=== PATIENT | female | born 1940 | race Caucasian/White ===

== ENCOUNTER 2023-08-27 19:29 | Emergency (ER) | payer OTHER, SELFPAY ==
[2023-08-27 19:32] VITALS: BP 149/70; PULSE 85; RESP 16; TEMP 36.3; O2SAT 94; BMI 20.2
--- NOTE | 2023-08-27 20:04 | ED_ITS ---
HPI - General Adult General Date Seen: 08/27/23 Chief complaint: Flank Pain Stated complaint: L arm and flank pain Time Seen by Provider: 08/27/23 19:34 History of Present Illness HPI narrative: 82-year-old female with a past medical history of hypertension, hypothyroidism, high cholesterol, history of pericardial effusion, history of right pontine CVA, osteopenia, migraine headaches, anxiety, depression, presenting to the ER today from home for evaluation of left flank pain, intermittent nausea, left arm pain. History from the patient is that she has had some chronic pain in her left flank for years. She can not exactly recall but workup had been done (years ago) but it sounds like her doctor had done an x-ray risk and. No clear cause for the flank pain is known. It has been getting worse yesterday or perhaps for a few days. Along with that, since Friday, about 3 days ago she has been having some anterior abdominal pain, more on the right than on the left. Also, since this morning she has been having intermittent episodes of nausea. No other clear symptoms with those nausea spells. No chest pain. No palpitations. This afternoon she had an episode of intense pain involving her left upper arm between the elbow and the armpit. She does not know what brought it on. It was not triggered by any movement or injury. No associated neck pain or numbness or burning down the arm. No swelling in the arm. She does recall that she gets p ains in that arm from time to time but has not had any lately. They arm pain, combined with the other new worsening symptoms prompted her to call 911. Now that she is here in the ER her symptoms are better. No arm pain. No nausea. Not having any left flank pain currently. In review of her record through [employer] [facility] she had a CT scan of her abdomen 07/05/2022. It showed no pleural effusion. Small pericardial effusion similar to prior. She had a compression deformity of lumbar 2, unchanged. Severe degenerative changes of L5-S1. Degenerative joint disease of both hips. No bowel obstruction. No mention of her aorta on the report. Related Data Home Medications ?Medication ?Instructions ?Recorded ?Confirmed fluticasone fur. 100 mcg-umeclid 1 inh inhalation Q24H 08/07/23 08/07/23 62.5 mcg-vilant 25 mcg inhalat.powder (Trelegy Ellipta) levothyroxine 13 mcg capsule 13 mcg PO QDAY 08/07/23 08/07/23 omeprazole 20 mg capsule,delayed 20 mg PO QDAY 08/07/23 08/07/23 release ondansetron HCl 4 mg tablet 4 mg PO Q8H 08/07/23 08/07/23 rosuvastatin 5 mg tablet (Crestor) 5 mg PO QDAY 08/07/23 08/07/23 sertraline 50 mg tablet (Zoloft) 50 mg PO QDAY 08/07/23 08/07/23 sucralfate 1 gram tablet 1 g PO BID 08/07/23 08/07/23 Previous Rx's ?Medication ?Instructions ?Recorded cephalexin 500 mg capsule 500 mg PO TID #21 caps 08/07/23 Allergies Allergy/AdvReac Type Severity Reaction Status Date / Time sulfamethazine Allergy Severe Verified 08/27/23 21:12 doxycycline Allergy Intermediate Nausea Verified 08/27/23 21:12 famotidine [From Pepcid] Allergy Intermediate Nausea Verified 08/27/23 21:12 atorvastatin [From Lipitor] AdvReac Intermediate Abdominal Verified 08/27/23 21:12 Pain lactose AdvReac Intermediate Nausea Verified 08/27/23 21:12 Vitamin B Complex with B12 AdvReac Mild ACID REFLUX Uncoded 08/27/23 21:12 and C PFSH PFSH Social History Non-prescribed substance use: denies use Exam Narrative: Exam Narrative: Exam initially limited because she seen in the hallway. not able to disrobe were for complete exam. Constitutional: Appears well-developed and well-nourished. Alert. Conversant. Non toxic. Says she is feeling better. HENT: Head: Atraumatic. Nose: Nose normal. Mouth/Throat: Oral mucosa is clear and moist. no trismus. Pharynx normal. Tonsils symmetric. No tonsillar enlargement, erythema, or exudate. Eyes: Conjunctivae normal. EOM normal. Pupils equal, round, and reactive to light. No scleral icterus. Neck: Normal range of motion. Neck supple. No tracheal deviation present. No JVD Cardiovascular: Normal rate, regular rhythm. No gallop. No friction rub. No murmur heard. Symmetric radial artery pulses Pulmonary/Chest: Effort normal. No stridor. No respiratory distress. No wheezes. No rales. No rhonchi . No ribcage tenderness. Abdominal: Soft. Bowel sounds normal. No distension. No mass. No pulsatile mass. Mild left upper quadrant and left mid abdominal tenderness. No rebound. No guarding. Musculoskeletal: No apparent rash or bruising on her visualized back or flank. No midline thoracic or lumbar spine tenderness. Rib cage nontender. RUE: Normal range of motion. No tenderness. No deformity LUE: Normal range of motion. No tenderness. No deformity RLE: Normal range of motion. No edema. No tenderness. No deformity LLE: Normal range of motion. No edema. No tenderness. No deformity Neurological: Alert and oriented to person, place, and time. Normal strength. CN II-VII intact. No sensory deficit. GCS eye subscore is 4. GCS verbal subscore is 5. GCS motor subscore is 6. Normal coordination . Strength 5/5 bilaterally in the deltoid, biceps, triceps, machine staker. Skin: Skin is warm and dry. No rash noted. No pallor. Normal capillary refill. Psychiatric: Normal mood. Normal affect. Const: Vital Signs, click to edit/add: Vital Signs - 24 hr 08/27/23 19:32 08/27/23 22:20 08/27/23 23:12 Temperature 97.4 F L Pulse Rate 73 Pulse Rate [Right Pulse Oximeter] 85 Respiratory Rate 16 16 Blood Pressure 146/70 H 140/74 H Blood Pressure [Ri ght Upper Arm] 149/70 H Pulse Oximetry 94 Oxygen Delivery Me thod Room Air Course Vital Signs Vital signs: Initial Vital Signs Temperature 97.4 F L 08/27/23 19:32 Temperature Source Temporal Artery Scan 08/27/23 19:32 Pulse Rate 85 08/27/23 19:32 Pulse Rhythm Regular 08/27/23 19:32 Respiratory Rate 16 08/27/23 19:32 Blood Pressure 149/70 H 08/27/23 19:32 Blood Pressure Mean 96 08/27/23 19:32 Blood Pressure Position Semi-Fowlers 08/27/23 19:32 Pulse Oximetry 94 08/27/23 19:32 Oxygen Delivery Method Room Air 08/27/23 19:32 Vital Signs Temperature 97.4 F L 08/27/23 19:32 Pulse Rate 85 08/27/23 19:32 Respiratory Rate 16 08/27/23 19:32 Blood Pressure 149/70 H 08/27/23 19:32 Pulse Oximetry 94 08/27/23 19:32 Oxygen Delivery Method Room Air 08/27/23 19:32 Temperature 97.4 F L 08/27/23 19:32 Pulse Rate 73 08/27/23 22:20 Respiratory Rate 16 08/27/23 22:20 Blood Pressure 140/74 H 08/27/23 23:12 Pulse Oximetry 94 08/27/23 19:32 Oxygen Delivery Method Room Air 08/27/23 19:32 Medications Administered Medications: Generic Name Dose Route Start Last Admin Trade Name Mark PRN Reason Stop Dose Admin Aspirin 162 mg 08/27/23 22:59 08/27/23 23:48 Aspirin 81 Mg Tab.Chew PO 08/27/23 23:00 162 mg ONCE ONE Administration Ondansetron HCl 4 mg 08/27/23 22:59 08/27/23 23:51 Ondansetron 2 Mg/Ml Inj IVP 08/27/23 23:00 4 mg ONCE ONE Administration Medical Decision Making [facility] Narrative Medical decision making narrative: 82-year-old female brought to the ER today by EMS for evaluation of chronic left flank pain worse than normal, new abdominal pain, intermittent nausea and vomiting, with an episode of severe left upper arm pain (that happens intermittently but happened again today). Differential is broad. In terms of her left flank pain, consider possible left kidney abnormality, kidney stone, pyelonephritis as well as aortic abnormality, splenic abnormality, atypical presentation of pancreatitis, left pleural effusion, rib fractures, musculoskeletal pain, among others. No evidence for any a chest wall infection, bruising, shingles. With her left arm pain, although she is not having any chest pain, consider possible angina. She has had occasionally in the past. It happened again today. No clear exertional component. EKG shows no definite ischemia but does show nonspecific changes. Initial troponin is detectable at 0.07. 2 hour delta troponin is rising up to 0.12. After aortic dissection definitively rule out with CT, aspirin administered. She is not actively having any symptoms here in the ER to suggest ongoing angina. Therefore no nitro administered. Will also treat with heparin for possible non-STEMI. Discussed with cardiology from [facility], . We reviewed the patient's presenting symptoms (no chest pain but intermittent nausea, intermittent left arm pain) nonspecific EKG, abnormal in slightly rising troponins. He accepts the patient in transfer to [place]. He agrees with aspirin and heparin. Urinalysis negative for pyuria or hematuria. BMP shows mild hyponatremia with sodium 131, likely not low enough to contribute to symptoms. Mild hypokalemia with potassium of 3.4. No definite EKG changes from this. Lab Data Labs: Lab Results 08/27/23 08/27/23 08/27/23 Range/Units 20:40 20:55 22:55 WBC 8.13 (4.50-11.00) K/uL RBC 4.16 (4.00-5.20) m/uL Hgb 12.3 (12.0-16.0) gm/dL Hct 37.0 (33.0-51.0) % MCV 89 (80-100) fL MCH 30 (26-34) pg MCHC 33 (32-36) gm/dL RDW Coeff of [place] 13.3 (11.5-15.5) % Plt Count 218 (140-440) K/uL Neut % (Auto) 68.3 (42.0-72.0) % Lymph % (Auto) 21.4 (20-44) % [place] % (Auto) 8.6 (0.0-11.0) % Eos % (Auto) 0.7 (0.0-7.0) % Baso % (Auto) 0.1 (0.0-3.0) % Neut # (Auto) 5.55 (1.7-7.0) K/uL Lymph # (Auto) 1.74 (0.90-2.90) K/uL [place] # (Auto) 0.70 (0.00-0.90) K/UL Eos # (Auto) 0.06 (0.00-0.50) K/uL Baso # (Auto) 0.01 (0.00-0.30) K/uL Abs Immat Gran (auto) 0.07 (0.00-0.30) K/uL Imm/Tot Granulo (auto) 0.9 % Sodium 131 L (135-149) mmol/L Potassium 3.4 L (3.6-5.1) mmol/L Chloride 99 (96-114) mmol/L Carbon Dioxide 28 (20-32) mmol/L Anion Gap 4 L (7-15) mEq/L BUN 18 (7-30) mg/dL Creatinine 0.7 (0.5-1.5) mg/dL Estimated Creat Clear 38.15 Estimated GFR 86 ml/min Glucose 97 (60-115) mg/dL Lactate 0.8 (0.5-1.9) mmol/L Calcium 8.7 (8.4-10.6) mg/dL Total Bilirubin 0.6 (0.1-1.5) mg/dL AST 34 (12-35) U/L ALT 26 (4-35) U/L Alkaline Phosphatase 56 (40-150) U/L Total Protein 7.0 (6.0-8.3) g/dL Albumin 4.4 (3.3-5.0) g/dL Lipase 72 (23-300) U/L Urine Color (Yellow) Urine Appearance (Clear) Urine pH (5.0-8.5) Ur Specific [place] (1.000-1.030) Urine Protein (Negative) Urine Glucose (UA) (Negative) Urine Ketones (Negative) Urine Blood (Negative) Urine Nitrite (Negative) Urine Bilirubin (Negative) Urine Urobilinogen (0.2-1.0) Ur Leukocyte Esterase (Negative) Urine RBC (0-2) Urine WBC (0-5) Ur Squamous Epith Cells (None-Few) Urine Bacteria (None) POC Troponin I 0.07 H 0.12 H (0.01-0.04) ng/ml 08/27/23 Range/Units Unknown WBC (4.50-11.00) K/uL RBC (4.00-5.20) m/uL Hgb (12.0-16.0) gm/dL Hct (33.0-51.0) % MCV (80-100) fL MCH (26-34) pg MCHC (32-36) gm/dL RDW Coeff of [place] (11.5-15.5) % Plt Count (140-440) K/uL Neut % (Auto) (42.0-72.0) % Lymph % (Auto) (20-44) % [place] % (Auto) (0.0-11.0) % Eos % (Auto) (0.0-7.0) % Baso % (Auto) (0.0-3.0) % Neut # (Auto) (1.7-7.0) K/uL Lymph # (Auto) (0.90-2.90) K/uL [place] # (Auto) (0.00-0.90) K/UL Eos # (Auto) (0.00-0.50) K/uL Baso # (Auto) (0.00-0.30) K/uL Abs Immat Gran (auto) (0.00-0.30) K/uL Imm/Tot Granulo (auto) % Sodium (135-149) mmol/L Potassium (3.6-5.1) mmol/L Chloride (96-114) mmol/L Carbon Dioxide (20-32) mmol/L Anion Gap (7-15) mEq/L BUN (7-30) mg/dL Creatinine (0.5-1.5) mg/dL Estimated Creat Clear Estimated GFR ml/min Glucose (60-115) mg/dL Lactate (0.5-1.9) mmol/L Calcium (8.4-10.6) mg/dL Total Bilirubin (0.1-1.5) mg/dL AST (12-35) U/L ALT (4-35) U/L Alkaline Phosphatase (40-150) U/L Total Protein (6.0-8.3) g/dL Albumin (3.3-5.0) g/dL Lipase (23-300) U/L Urine Color Yellow (Yellow) Urine Appearance Clear (Clear) Urine pH 6.5 (5.0-8.5) Ur Specific [place] 1.020 (1.000-1.030) Urine Protein Negative (Negative) Urine Glucose (UA) Negative (Negative) Urine Ketones Negative (Negative) Urine Blood Negative (Negative) Urine Nitrite Negative (Negative) Urine Bilirubin Negative (Negative) Urine Urobilinogen 0.2 (0.2-1.0) Ur Leukocyte Esterase Negative (Negative) Urine RBC 0-2 (0-2) Urine WBC 0-2 (0-5) Ur Squamous Epith Cells None (None-Few) Urine Bacteria None (None) POC Troponin I (0.01-0.04) ng/ml Imaging Data CT Chest/Ab/Pelvis: Attestation: I have reviewed the pertinent imaging results. My impression: No abdominal aortic aneurysm. Awaiting formal radiology report Radiologist's impression: FINDINGS: CHEST: Cardiovascular structures: The unenhanced images demonstrate no evidence of aortic intramural thrombus. Thoracic aorta is normal in caliber without evidence of dissection. Heart size is normal. Coronary artery calcification. No pulmonary embolism. Mediastinum and kena: No mass or adenopathy. Lungs and pleura: Right lower lobe scarring versus atelectasis. No consolidation. Punctate subsolid nodule within the right upper lobe (7/23). No suspicious nodule. Thin bands of scarring within the lingula. No pleural effusion or pneumothorax. Chest wall and axilla: No mass or adenopathy. Bones: Unremarkable for age. ABDOMEN AND PELVIS: Liver: Unremarkable. Gallbladder and bile ducts: Status post cholecystectomy. No abnormal biliary ductal dilatation. Pancreas: Unremarkable. Spleen: Unremarkable. Adrenal glands: Unremarkable. Kidneys: Unremarkable. GI tract: Unremarkable. Vascular structures: Abdominal aorta is normal in caliber without evidence of dissection. Moderate atherosclerotic disease of the abdominal aorta. Mesenteric arteries are patent. Lymph nodes: Unremarkable. Miscellaneous: Unremarkable. No free air or significant free fluid. Pelvic Organs: Unremarkable. Bones: Chronic-appearing, mild L2 compression fracture. Otherwise, unremarkable for age IMPRESSION: 1. No aortic dissection or acute intramural hematoma. 2. No acute findings within the chest, abdomen, or pelvis ECG Data Attestation: I personally reviewed and interpreted this ECG as follows: Interpretation: Normal sinus rhythm with sinus arrhythmia Rate: 67 PA: 148. QRS axis: Normal axis. RSR prime pattern in V1 suggests possible right ventricular conduction delay but there is not clearly a terminal S-wave in V5 and V6 to suggest incomplete right bundle-branch block. QRS duration 96 ST segment/T wave: No ST segment elevation or depression. QTc: 422 Discharge Plan Discharge Clinical Impression: Non-ST elevation [place] (NSTEMI), Chronic left flank pain Patient Disposition: Xfer Other Prescriptions: No Action levothyroxine 13 mcg capsule 13 mcg PO QDAY omeprazole 20 mg capsule,delayed release(DR/EC) 20 mg PO QDAY rosuvastatin [Crestor] 5 mg tablet 5 mg PO QDAY sertraline [Zoloft] 50 mg tablet 50 mg PO QDAY sucralfate 1 gram tablet 1 g PO BID Trelegy Ellipta 100-62.5-25 mcg blister with device 1 inh inhalation Q24H ondansetron HCl 4 mg tablet 4 mg PO Q8H cephalexin 500 mg capsule 500 mg PO TID Qty: 21 0RF Stand Alone Forms: My[facility] Info Instructions
--- NOTE | 2023-08-27 20:40 | CRLHL7_ITS ---
For Patients: As a result of the Century Cures Act, medical imaging exams and procedure reports are released immediately into your electronic medical record. You may view this report before your referring provider. If you have questions, please contact your health care provider. INDICATION: LEFT FLANK AND EPIGASTRIC ABD PAIN, NAUSEA, LEFT ARM PAIN. TECHNIQUE: CT chest without contrast and CT chest, abdomen and pelvis acquired with 95 cc of Isovue 370 IV contrast, dissection protocol. COMPARISON: None. FINDINGS: CHEST: Cardiovascular structures: The unenhanced images demonstrate no evidence of aortic intramural thrombus. Thoracic aorta is normal in caliber without evidence of dissection. Heart size is normal. Coronary artery calcification. No pulmonary embolism. Mediastinum and kena: No mass or adenopathy. Lungs and pleura: Right lower lobe scarring versus atelectasis. No consolidation. Punctate subsolid nodule within the right upper lobe (10/13). No suspicious nodule. Thin bands of scarring within the lingula. No pleural effusion or pneumothorax. Chest wall and axilla: No mass or adenopathy. Bones: Unremarkable for age. ABDOMEN AND PELVIS: Liver: Unremarkable. Gallbladder and bile ducts: Status post cholecystectomy. No abnormal biliary ductal dilatation. Pancreas: Unremarkable. Spleen: Unremarkable. Adrenal glands: Unremarkable. Kidneys: Unremarkable. GI tract: Unremarkable. Vascular structures: Abdominal aorta is normal in caliber without evidence of dissection. Moderate atherosclerotic disease of the abdominal aorta. Mesenteric arteries are patent. Lymph nodes: Unremarkable. Miscellaneous: Unremarkable. No free air or significant free fluid. Pelvic Organs: Unremarkable. Bones: Chronic-appearing, mild L2 compression fracture. Otherwise, unremarkable for age IMPRESSION: 1. No aortic dissection or acute intramural hematoma. 2. No acute findings within the chest, abdomen, or pelvis. Please note that all CT scans at this facility use dose modulation, iterative reconstruction, and/or weight-based dosing when appropriate to reduce radiation dose to as low as reasonably achievable. Dictated by Tl Prince MD @ 08/27/2023 10:24:00 PM (Electronically Signed)
[2023-08-27 20:54] LABS: Appearance Urine Clear (Clear); Bilirubin Urine Negative (Negative); Blood Urine Negative (Negative); Color Urine Yellow (Yellow); Glucose Urine Negative (Negative); Ketones Urine Negative (Negative); Leukocyte Esterase Urine Negative (Negative); Nitrite Urine Negative (Negative); Protein Urine Negative (Negative); Urobilinogen Urine 0.2 (0.2-1.0); pH Urine 6.5 (5.0-8.5)
[2023-08-27 21:03] LABS: RBC Urine 0-2 (0-2); WBC Urine 0-2 (0-5)
[2023-08-27 21:06] LABS: Lactate* 0.8 mmol/L (0.5-1.9)
[2023-08-27 21:15] LABS: Basophils Absolute Auto 0.01 K/uL (0.00-0.30); Basophils Percent Auto 0.1 % (0.0-3.0); Eosinophils Absolute Auto 0.06 K/uL (0.00-0.50); Eosinophils Percent Auto 0.7 % (0.0-7.0); Hemoglobin* 12.3 gm/dL (12.0-16.0); Immature Granulocytes Abs Auto 0.07 K/uL (0.00-0.30); Immature Granulocytes Pct Auto 0.9 %; Lymphocytes Absolute Auto 1.74 K/uL (0.90-2.90); Lymphocytes Percent Auto 21.4 % (20-44); Mean Corpuscular HGB Conc 33 gm/dL (32-36); Mean Corpuscular Hemoglobin 30 pg (26-34); Mean Corpuscular Volume 89 fL (80-100); Monocytes Percent Auto 8.6 % (0.0-11.0); Neutrophils Absolute Auto 5.55 K/uL (1.7-7.0); Neutrophils Percent Auto 68.3 % (42.0-72.0); Platelet Count* 218 K/uL (140-440); RDW Coefficient of Variation % 13.3 % (11.5-15.5); Red Blood Count 4.16 m/uL (4.00-5.20); White Blood Count* 8.13 K/uL (4.50-11.00)
[2023-08-27 21:19] LABS: Troponin, Point-of-Care* 0.07 ng/ml (0.01-0.04)
[2023-08-27 21:19] LABS: Slide Review Reflex No
[2023-08-27 21:24] LABS: Albumin* 4.4 g/dL (3.3-5.0); Chloride* 99 mmol/L (96-114)
[2023-08-27 21:25] LABS: Potassium* 3.4 mmol/L (3.6-5.1); Sodium* 131 mmol/L (135-149)
[2023-08-27 21:27] LABS: Alkaline Phosphatase* 56 U/L (40-150); Anion Gap 4 mEq/L (7-15); Aspartate Amino Transferase* 34 U/L (12-35); Bilirubin Total* 0.6 mg/dL (0.1-1.5); Carbon Dioxide* 28 mmol/L (20-32); Creatinine* 0.7 mg/dL (0.5-1.5); Est. Creatinine Clearance* 38.15; Estimated Glomerular Filt Rate 86 ml/min
[2023-08-27 21:28] LABS: Alanine Aminotransferase* 26 U/L (4-35); Blood Urea Nitrogen* 18 mg/dL (7-30); Calcium* 8.7 mg/dL (8.4-10.6); Glucose* 97 mg/dL (60-115); Lipase* 72 U/L (23-300)
[2023-08-27 22:20] VITALS: BP 146/70; PULSE 73; RESP 16
[2023-08-27 23:12] VITALS: BP 140/74
[2023-08-27 23:15] LABS: Troponin, Point-of-Care* 0.12 ng/ml (0.01-0.04)
[2023-08-27] MEDS: ASPIRIN 81 MG TAB.CHEW 162 MG PO (23:48)
[2023-08-27] MEDS: ONDANSETRON 2 MG/ML inj 4 MG IVP (23:51)
--- NOTE | 2023-08-27 23:58 | ED.NURSE ---
Nurse to Nurse report completed. Patient to transfer to [facility] 0724. Unit phone [phone]
[2023-08-28] MEDS: HEPARIN 5,000 UNIT/0.5 ML INJ 3400 UNIT IVP (00:18)
[2023-08-28] MEDS: HEPARIN 25,000 UNIT/500 ML BAG 14 UNIT IV (00:19)
[2023-08-28 00:20] LABS: Partial Thromboplastin Time* 28 Seconds (23-33)
--- NOTE | 2023-08-28 00:23 | ED.NURSE ---
EMS arrived. Report given. EMS in care of pt.
== END 2023-08-28 00:24 | disposition other institution (70) ==
PROVIDERS: Emergency Provider Emergency Medicine; PCP Family Medicine
DX: I21.4 Non-ST elevation (NSTEMI) myocardial infarction (principal); R10.9 Unspecified abdominal pain; G89.29 Other chronic pain
CPT/HCPCS: 36415; 71275; 74174; 80053; 81001; 83605; 83690; 84484; 85025; 85730; 93005; 96374; 96375; 99284; 99285; M0243; A0425; A0427; A9270; J1644; J2405; Q9967

== ENCOUNTER 2023-09-03 12:17 | Outpatient (CLI) | payer OTHER, SELFPAY | END 2023-09-03 12:18 | disposition home or self-care (01) | LOC: AMB 09-18 02:52 | PROVIDERS: PCP Family Medicine; Visit Provider Family Medicine | DX: R07.9 Chest pain, unspecified (principal) | CPT/HCPCS: A0425; A0427 ==